=== PATIENT | male | born 1950 | race Two or more races ===

== ENCOUNTER 2023-05-22 09:39 | Inpatient (IN) | payer OTHER ==
[~2023-05-22] VITALS: Ht 182.9 cm; Wt 99.8 kg
[2023-05-22] MEDS ORDERED: 0.9 % SODIUM CHLORIDE 1,000 ML IV SCH ×2 (10:30→18:15)
[2023-05-22] MEDS ORDERED: KETOROLAC TROMETHAMINE 30 MG VIAL IV ONE (10:30)
[2023-05-22 11:09] LABS: HEMATOCRIT 34.3 % (39.0-48.0); MEAN CELL VOLUME 90.5 fL (80.0-100.00); MEAN CORPUSCULAR HEMOGLOBIN 31.6 pg (27.00-32.0); MEAN CORPUSCULAR HGB CONC 34.9 g/dl (32.0-36.0); PLATELET COUNT 395 K/uL (150-450); RED BLOOD COUNT 3.79 M/uL (4.00-6.00); RED CELL DISTRIBUTION WIDTH 13.4 % (11.5-14.5)
[2023-05-22 11:42] LABS: INR 1.25; PARTIAL THROMBOPLASTIN TIME 28.5 SECONDS (22.0-34.0); PROTHROMBIN TIME 12.9 SECONDS (9.0-11.5)
[2023-05-22 11:59] LABS: URINE APPEARANCE Cloudy; URINE BILIRRUBIN Moderate (NEGATIVE); URINE BLOOD Negative; URINE COLOR Orange; URINE GLUCOSE Negative (NEGATIVE); URINE LEUKOCYTE Small; URINE NITRATE Positive; URINE PROTEIN 30 (NEGATIVE)
[2023-05-22 12:00] LABS: URINE BACTERIA 23.9 uL (0.0-1933); URINE EPITHELIAL CELLS 85.6 uL (0.0-38.8); URINE RBC 43.4 uL (0.0-20.8); URINE WBC 15.9 uL (0.0-23.2)
[2023-05-22 12:26] LABS: URINE MUCUS HEAVY
[2023-05-22 12:38] LABS: BILIRUBIN TOTAL 0.64 mg/dL (0.3-1.2); CALCIUM 8.9 mg/dL (8.5-10.1); CREATININE SERUM 0.79 mg/dL (0.70-1.30); GFR 95.88; GLOBULINA 4.6 G/DL (2.4-3.5); POTASSIUM 3.44 mEq/L (3.5-5.1); TOTAL PROTEIN 6.6 gm/dL (6.4-8.2)
[2023-05-22] MEDS ORDERED: PIPERACILLIN/TAZOBACTAM SODIUM 3.375 GM in 0.9 % SODIUM CHLORIDE 100 ML IV SCH (18:00)
[2023-05-22] MEDS ORDERED: ACETAMINOPHEN 500 MG GEL..CAP PO PRN (18:15)
[2023-05-22] MEDS ORDERED: ONDANSETRON HCL 4 MG in 0.9 % SODIUM CHLORIDE 50 ML IV PRN (18:15)
[2023-05-22] MEDS ORDERED: MEPERIDINE HCL/PF 25 MG/ML VIAL IM PRN (18:15)
[2023-05-23] MEDS ORDERED: FAMOTIDINE/PF 20 MG in 0.9 % SODIUM CHLORIDE 8 ML IV PUSH SCH (09:00)
[2023-05-23] MEDS ORDERED: MIDAZOLAM HCL 2 MG/2 ML VIAL IV PUSH ONE (13:45)
[2023-05-23] MEDS ORDERED: fentaNYL CITRATE 50 MCG/ML AMPUL IV PUSH ONE (14:00)
[2023-05-24 06:27] LABS: HEMATOCRIT 30.6 % (39.0-48.0); HEMOGLOBIN 10.7 g/dL (13-16.00); MEAN CELL VOLUME 89.7 fL (80.0-100.00); MEAN CORPUSCULAR HEMOGLOBIN 31.3 pg (27.00-32.0); MEAN CORPUSCULAR HGB CONC 34.9 g/dl (32.0-36.0); PLATELET COUNT 391 K/uL (150-450); RED BLOOD COUNT 3.41 M/uL (4.00-6.00); RED CELL DISTRIBUTION WIDTH 13.6 % (11.5-14.5)
[2023-05-24 07:07] LABS: ALBUMIN 1.7 gm/dL (3.4-5.0); BILIRUBIN TOTAL 0.58 mg/dL (0.3-1.2); CALCIUM 8.3 mg/dL (8.5-10.1); CREATININE SERUM 0.62 mg/dL (0.70-1.30); GFR 126.81; GLOBULINA 3.5 G/DL (2.4-3.5); MAGNESIUM 1.7 mg/dL (1.8-2.4); PHOSPHOROUS 3.6 mg/dL (2.5-4.9); POTASSIUM 3.82 mEq/L (3.5-5.1); TOTAL PROTEIN 5.2 gm/dL (6.4-8.2)
[2023-05-24 07:08] LABS: C-REACTIVE PROTEIN 11.7 MG/DL (0.00-0.29)
[2023-05-24] MEDS ORDERED: FAMOTIDINE/PF 20 MG in 0.9 % SODIUM CHLORIDE 8 ML IV PUSH SCH (17:00)
[2023-05-24] MEDS ORDERED: VANCOMYCIN HCL 5 MG/ML REDILUIDO IV SCH (21:00)
[2023-05-26 05:34] LABS: ALBUMIN 1.9 gm/dL (3.4-5.0); BILIRUBIN TOTAL 0.53 mg/dL (0.3-1.2); CALCIUM 8.6 mg/dL (8.5-10.1); CREATININE SERUM 1.48 mg/dL (0.70-1.30); GFR 46.46; GLOBULINA 3.5 G/DL (2.4-3.5); MAGNESIUM 1.6 mg/dL (1.8-2.4); PHOSPHOROUS 4.2 mg/dL (2.5-4.9); POTASSIUM 3.7 mEq/L (3.5-5.1); TOTAL PROTEIN 5.4 gm/dL (6.4-8.2)
[2023-05-26 05:59] LABS: C-REACTIVE PROTEIN 3.43 MG/DL (0.00-0.29)
[2023-05-26 06:15] LABS: HEMATOCRIT 34.7 % (39.0-48.0); HEMOGLOBIN 11.7 g/dL (13-16.00); MEAN CELL VOLUME 89.3 fL (80.0-100.00); MEAN CORPUSCULAR HEMOGLOBIN 30.1 pg (27.00-32.0); MEAN CORPUSCULAR HGB CONC 33.7 g/dl (32.0-36.0); PLATELET COUNT 449 K/uL (150-450); RED BLOOD COUNT 3.89 M/uL (4.00-6.00); RED CELL DISTRIBUTION WIDTH 14.2 % (11.5-14.5)
[2023-05-27] MEDS ORDERED: LACTOBACILLUS ACIDOPHILUS 1 CAP CAP PO SCH (17:00)
[2023-05-27] MEDS ORDERED: METRONIDAZOLE/SODIUM CHLORIDE 100 ML IV SCH (17:00)
[2023-05-27] MEDS ORDERED: CEFTRIAXONE SODIUM 2,000 MG VIAL IV SCH (17:00)
== END 2023-05-27 18:15 | disposition left against medical advice (07) | DRG 373 ==
LOC: ER 09:40 → MEDJ 18:54
PROVIDERS: General Practice; Internal Medicine Infectious Disease; ADMIT Internal Medicine; ATTEND Internal Medicine
PROC: BW21YZZ Computerized Tomography (CT Scan) of Abdomen and Pelvis using Other Contrast (ICD-10-PCS; 2023-05-22)
PROC: 0W9G30Z Drainage of Peritoneal Cavity with Drainage Device, Percutaneous Approach (ICD-10-PCS; principal; 2023-05-23)
DX: K35.33 Acute appendicitis with perforation, localized peritonitis, and gangrene, with abscess (principal)

== ENCOUNTER 2024-11-25 08:00 | Day surgery (SDC) | payer OTHER ==
[2024-11-20 12:40] LABS: BASO % 1.0 % (0.1-1.2); EOS # 0.25 (0.04-0.54); EOS % 4.0 % (0.7-7.0); LYMPH # 2.22 (1.18-3.74); LYMPH % 35.6 % (19.3-53.1); MEAN PLATELET VOLUME 9.20 fl (9.4-12.4); MONO # 0.57 (0.24-0.82); MONO % 9.1 % (4.7-12.5); NEUT # 3.11 (1.56-6.13); NEUT % 50.0 % (34.0-71.1); RED CELL DISTRIBUTION WIDTH 13.1 % (11.6-14.4)
[2024-11-20 12:46] LABS: URINE APPEARANCE Clear; URINE BILIRRUBIN Negative (NEGATIVE); URINE BLOOD Negative; URINE COLOR Yellow; URINE GLUCOSE Negative (NEGATIVE); URINE KETONE Negative (NEGATIVE); URINE LEUKOCYTE Negative; URINE NITRATE Negative; URINE PROTEIN Negative (NEGATIVE); URINE UROBILINOGEN 0.2 E.U./dl
[2024-11-20 12:47] LABS: URINE BACTERIA 4.7 uL (0.0-1933); URINE EPITHELIAL CELLS 2.1 uL (0.0-38.8); URINE RBC 3.2 uL (0.0-20.8); URINE WBC 2.4 uL (0.0-23.2)
[2024-11-20 13:01] LABS: URINE CAST 0.14 uL (0.0-1.40)
[2024-11-20 13:03] LABS: INR 1.01
[2024-11-20 13:25] LABS: BUN CREA RATIO 18.0 (7.0-25.0); CREATININE SERUM 0.94 mg/dL (0.70-1.30); GFR 78.23; GLUCOSE FASTING 109.0 mg/dL (65-100); OSMOLALITY SERUM 289.0 MOSM/KG (275-295)
[2024-11-25] MEDS ORDERED: METRONIDAZOLE/SODIUM CHLORIDE 500 MG/100 ML PIGGYBACK IV ONE ×2 (09:16→11:24)
[2024-11-25] MEDS ORDERED: CEFTRIAXONE SODIUM 2,000 MG VIAL ONE (09:16)
[2024-11-25] MEDS ORDERED: ENOXAPARIN SODIUM 40 MG/0.4 ML SYRINGE SUBCUTANEO ONE (09:16)
[2024-11-25] MEDS ORDERED: BUPIVACAINE HCL/MPF 0.5% 30ML VIAL ONE (11:02)
[2024-11-25] MEDS ORDERED: CHLORHEXIDINE GLUCONATE 120 ML BOTTLE TOP ONE (11:31)
[2024-11-25] MEDS ORDERED: SUGAMMADEX SODIUM 200 MG/2 ML VIAL IV ONE (14:14)
[2024-11-25] MEDS ORDERED: CELEBREX200MG PO (14:50)
[2024-11-25] MEDS ORDERED: POLY119PG PO (14:50)
[2024-11-25] MEDS ORDERED: PERCOCET 5-3251 EACH PO (14:50)
[2024-11-25] MEDS ORDERED: NEURONTIN300 MG PO (14:50)
== END 2024-11-25 18:00 | disposition home or self-care (01) ==
LOC: CIR.AMB 08:00
PROVIDERS: ATTEND Surgery
DX: K40.90 Unilateral inguinal hernia, without obstruction or gangrene, not specified as recurrent (principal); K42.0 Umbilical hernia with obstruction, without gangrene
CPT/HCPCS: 49650; 49594; C1781